=== PATIENT | female | born 1950 | race Caucasian/White ===

== ENCOUNTER 2017-04-07 12:13 | Emergency (ER) | payer MEDICARE, BC ==
[2017-04-07 12:21] VITALS: BP 157/94
[2017-04-07] MEDS ORDERED: Ketorolac INJ* 60 MG/2 ML VIAL IM ONE (13:18)
[2017-04-07] MEDS ORDERED: Ondansetron ODT TAB* 4 MG PO ONE (13:18)
--- NOTE | 2017-04-07 14:14 | UC ---
General HPI - HPI Summary HPI Summary: 1) FOR FIVE DAYS HAS HAD DENTAL PAIN AND FACIAL PRESSURE WITH HEADACHES. HAS ' BAD TEETH' AND HAS NOT SEEN DENTIST IN MANY YEARS. NO FEVERS. NO FACIAL SWELLING. 2) TWISTED GETTING OUT OF BED TWO DAYS AGO, LOW BACK PAIN THAT RADIATES DOWN R> L LEGS - History of Current Complaint Chief Complaint: UCHeadache Stated Complaint: HEADACHE Time Seen by Provider: 04/07/17 13:04 Hx Obtained From: Patient Onset/Duration: Gradual Onset, Lasting Days, Still Present Timing: Intermittent Episodes Lasting: Onset Severity: Mild Current Severity: Moderate Pain Intensity: 0 Associated Signs & Symptoms: Positive: Back Pain, Headache, Nausea, Trauma. Negative: Abdominal Pain, Confusion, Cough, Chest Pain, Dizziness, Diarrhea, Dysuria, Edema, Fever, Palpitations, Syncope, SOB, Vomiting, Wheezing, Weakness - Allergy/Home Medications Allergies/Adverse Reactions: Allergies Allergy/AdvReac Type Severity Reaction Status Date / Time Amoxicillin [From Augmentin] AdvReac Abdominal Verified 01/24/14 20:12 Pain Clavulanic Acid AdvReac Abdominal Verified 01/24/14 20:12 [From Augmentin] Pain PMH/Surg Hx/FS Hx/Imm Hx Previously Healthy: Yes - Surgical History Surgical History: Yes Surgery Procedure, Year, and Place: tubal ligation, tonsilectomy - Family History Known Family History: Negative: Renal Disease - Social History Occupation: Employed Full-time Lives: With Family Alcohol Use: None Substance Use Type: None Smoking Status (MU): Never Smoked Tobacco Review of Systems Constitutional: Negative Skin: Negative Eyes: Negative ENT: Dental Pain, Sinus Congestion, Sinus Pain/Tenderness Respiratory: Negative Cardiovascular: Negative Gastrointestinal: Negative Genitourinary: Negative Motor: Negative Neurovascular: Negative Musculoskeletal: Arthralgia, Myalgia Neurological: Negative Psychological: Negative All Other Systems Reviewed And Are Negative: Yes Physical Exam Triage Information Reviewed: Yes Appearance: Well-Appearing, Well-Nourished, Pain Distress - MILD, Obese Vital Signs: Initial Vital Signs Temp 98 F 04/07/17 12:16 Pulse 106 04/07/17 12:16 Resp 20 04/07/17 12:16 BP 157/94 04/07/17 12:16 Pulse Ox 100 04/07/17 12:16 Vital Signs Reviewed: Yes Eye Exam: Normal Eyes: Positive: Conjunctiva Clear ENT: Positive: Normal ENT inspection, TMs normal, Other: - LEFT MAXOFACIAL TENDERNESS Dental: Positive: Gross Decay/Caries @ - DIFFUSE GROSS DECAY Neck exam: Normal Neck: Positive: Supple, Nontender, No Lymphadenopathy Respiratory Exam: Normal Respiratory: Positive: Chest non-tender, Lungs clear, Normal breath sounds, No respiratory distress Cardiovascular Exam: Normal Cardiovascular: Positive: RRR, No Murmur, Pulses Normal, Brisk Capillary Refill Abdominal Exam: Normal Abdomen Description: Positive: Nontender, No Organomegaly. Negative: CVA Tenderness (R), CVA Tenderness (L) Musculoskeletal: Positive: Strength Intact, ROM Intact, No Edema, Other: - POSITIVE LEFT STRAIGHT LEG RAISE Neurological Exam: Normal Psychological Exam: Normal Skin Exam: Normal Course/Dx - Differential Dx - Multi-Symptom Differential Diagnoses: Other Provider Diagnoses: GROSS TOOTH DECAY; SINUSITIS; SCIATICA Discharge - Discharge Plan Condition: Stable Disposition: HOME Prescriptions: Cephalexin CAP* [Keflex CAP*] 500 mg PO QID #40 cap Metaxalone TAB* [Skelaxin TAB*] 800 mg PO TID PRN #12 tab PRN Reason: Spasms Patient Education Materials: Sinusitis (ED), Sciatica (ED), Toothache (ED) Referrals: Clint Sommers MD [Primary Care Provider] - Additional Instructions: PHYSICAL THERAPY REFERRAL: You have been prescribed physical therapy. Treatments may include stretching, exercise, application of heat or cold, and other modalities. After an injury, PT can reduce swelling and pain. In recovery, PT is used to restore mobility and strength. Your specific treatment goals are: Reduction of Swelling (EGS, US, ice as needed) ___x__ Pain Reduction (EGS, US, ice as needed) ___x__ TENS Pack Fitting and Instruction Wound Hydrotherapy __x___ Preservation of Mobility __x___ Restorationism of Mobility __x___ Strength Restorationism ___x__ Work or Sports Hardening This instruction sheet also serves as your PHYSICAL THERAPY REFERRAL! Please take it with you to the therapist, so he/she will be aware of your diagnosis and treatment plan. You may see the physical therapist of your choice for these treatments, but may wish to check with your insurance to be sure the provider you select is covered. It's important to see the doctor to whom you have been referred for follow up.
== END 2017-04-07 13:40 | disposition home or self-care (01) ==
LOC: UCEAST 12:13
DX: K02.9 Dental caries, unspecified (principal); J32.9 Chronic sinusitis, unspecified; M54.30 Sciatica, unspecified side
CPT/HCPCS: 96372; 99212; A9270-GY; G0463; J1885

== ENCOUNTER 2017-06-29 14:51 | Emergency (ER) | payer MEDICARE, OTHER ==
--- NOTE | 2017-06-29 16:14 | RAD ---
HISTORY: Tender Lisfranc joint, base of fifth metatarsal after fall, tender medial and lateral malleoli and talar dome COMPARISONS: None VIEWS: 6, Frontal, lateral, and oblique views of the left foot and of the left ankle FINDINGS: BONE DENSITY: Normal. BONES: There is no displaced fracture. There are calcaneal enthesophytes. 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 The Lisfranc interval is normal. ALIGNMENT: There is no dislocation. SOFT TISSUES: Unremarkable. OTHER FINDINGS: None. IMPRESSION: NO ACUTE OSSEOUS INJURY TO THE LEFT ANKLE OR LEFT FOOT. IF SYMPTOMS PERSIST, RECOMMEND REPEAT IMAGING.
[2017-06-29 16:56] VITALS: BP 184/100
[2017-06-29] MEDS ORDERED: Aspirin Low Dose CHEW TAB* 81 MG PO ONE (17:22)
--- NOTE | 2017-07-08 17:09 | UC ---
Abraham Giraldo Nikita, scribed for Estefanía Peterson DO on 06/29/17 at 1606 . Lower Extremity/Ankle HPI - HPI Summary HPI Summary: This patient is a 67 year old F presenting to [facility] with a chief complaint of L foot pain since . Pt was at [facility] when she fell after putting her R foot down on the floor. Pt doesnt know what made her fall. The CC is described as aching, throbbing, and tender, pain in L side of foot, under the foot, and around the both sides of ankle (worse on L side). The patient rates the pain 7/10 in severity. Symptoms aggravated by walking and pulling toes up. Symptoms alleviated by nothing. Patient reports mild swelling on L side of foot. Patient denies pain in L leg. - History of Current Complaint Chief Complaint: UCLowerExtremity Stated Complaint: FOOT ANKLE INJURY Time Seen by Provider: 06/29/17 15:33 Hx Obtained From: Patient Onset/Duration: Sudden Onset, Lasting Hours, Still Present Severity Initially: Moderate Severity Currently: Moderate Pain Intensity: 7 Pain Scale Used: 0-10 Numeric Aggravating Factor(s): Ambulation, Other - pulling toes up Alleviating Factor(s): Nothing - Allergies/Home Medications Allergies/Adverse Reactions: Allergies Allergy/AdvReac Type Severity Reaction Status Date / Time Amoxicillin [From Augmentin] AdvReac Abdominal Verified 06/29/17 15:22 Pain Clavulanic Acid AdvReac Abdominal Verified 06/29/17 15:22 [From Augmentin] Pain Home Medications: Home Medications Lisinopril TAB* [Prinivil TAB 5 MG*] 5 mg PO DAILY 06/29/17 [History Confirmed 06/29/17] PMH/Surg Hx/FS Hx/Imm Hx Endocrine History: Thyroid Disease Other Endocrine History: No DM Cardiovascular History: Hypertension - Surgical History Surgical History: Yes Surgery Procedure, Year, and Place: tubal ligation, tonsilectomy - Family History Known Family History: Negative: Renal Disease - Social History Alcohol Use: Rare Substance Use Type: None Smoking Status (MU): Never Smoked Tobacco Review of Systems Constitutional: Negative Musculoskeletal: Other: - L foot/ankle pain, mild swelling on L foot; denies pain in L leg All Other Systems Reviewed And Are Negative: Yes Physical Exam Triage Information Reviewed: Yes Appearance: Well-Appearing, No Pain Distress, Well-Nourished Vital Signs: Initial Vital Signs Temp 96.9 F 06/29/17 15:13 Pulse 64 06/29/17 15:13 Resp 20 06/29/17 15:13 BP 174/76 06/29/17 15:13 Pulse Ox 98 06/29/17 15:13 Vital Signs Reviewed: Yes Eyes: Positive: Conjunctiva Clear. Negative: Discharge ENT: Positive: Hearing grossly normal, Other: - Normal voice. Negative: Muffled /hoarse voice Neck exam: Normal Neck: Positive: Supple Respiratory: Positive: Lungs clear, Normal breath sounds, No respiratory distress, No accessory muscle use Cardiovascular: Positive: RRR, No Murmur Musculoskeletal: Positive: Other: - tender over medial and lateral malleolus, talar dome, base of 5th metatarsal, and lisfranc joint of L foot Neurological Exam: Other - A&Ox3, CN II-XII INTACT, SENSORY MOTOR INTACT, REFLEXES INTACT, NO CEREBELLAR SIGNS, FACIAL SYMMETRY, NEGATIVE ROMBERG, NORMAL GAIT Neurological: Positive: Alert, Muscle Tone Normal Psychological Exam: Normal Psychological: Positive: Age Appropriate Behavior Skin Exam: Normal, Other - Warm, Dry, Normal color Diagnostics - Radiology L Foot XR Radiology Interpretation Completed By: Radiologist - NO ACUTE OSSEOUS INJURY TO THE LEFT ANKLE OR LEFT FOOT. IF SYMPTOMS PERSIST, RECOMMEND REPEAT IMAGING. Ankle XR Radiology Interpretation Completed By: Radiologist - NO ACUTE OSSEOUS INJURY TO THE LEFT ANKLE OR LEFT FOOT. IF SYMPTOMS PERSIST, RECOMMEND REPEAT IMAGING. ED physician has reviewed this radiology report and agrees. - EKG Cardiac Rate: Bradycardia - 51 bpm; taken at 1659; RSR' in V1 & V2, new since 11/03 Re-Evaluation - Re-Evaluation First Eval Re-Evaluation Time: 16:59 Comment: Rechecked BP with manual cuff because it was elevated and found that it was still elevated. Upon questioning, pt admits she did not take her BP medication this morning. An EKG will be taken. Lower Extremity Course/Dx - Course Course Of Treatment: This patient is a 67 year old F presenting to [facility] with a chief complaint of L foot pain since . Pt was at [facility] when she fell after putting her R foot down on the floor. Pt doesnt know what made her fall. The CC is described as aching, throbbing, and tender, pain in L side of foot, under the foot, and around the both sides of ankle (worse on L side). The patient rates the pain 7/10 in severity. Symptoms aggravated by walking and pulling toes up. Symptoms alleviated by nothing. Patient reports mild swelling on L side of foot. Patient denies pain in L leg. L foot XR reveals NO ACUTE OSSEOUS INJURY TO THE LEFT ANKLE OR LEFT FOOT. IF SYMPTOMS PERSIST, RECOMMEND REPEAT IMAGING. L ankle XR reveals NO ACUTE OSSEOUS INJURY TO THE LEFT ANKLE OR LEFT FOOT. IF SYMPTOMS PERSIST, RECOMMEND REPEAT IMAGING. ED physician has reviewed this radiology report and agrees. EKG reveals sinus bradycardia at 51 bpm and RSR' in V1 & V2 (new since 10/11/05). Medications reviewed this visit. High blood pressure noted. Pt will be discharged and sent to [facility]. Pt is agreeable with this plan. - Differential Dx/Diagnosis Provider Diagnoses: Ankle sprain. Suspected fracture. Elevated blood pressure without diagnosis of hypertension. Discharge - Discharge Plan Condition: Stable Disposition: HOME Patient Education Materials: Ankle Sprain (ED), Crutch Instructions (ED), Chronic Hypertension (ED), Suspected Fracture (ED) Referrals: Bright Crowder MD [Medical Doctor] - (Follow up with Dr. Crowder in 5-7 days to re-evaluate for fracture.) Clint Sommers MD [Primary Care Provider] - If Needed Additional Instructions: Your history and exam is suspicous for possible occult fracture of the base of the 5th metatarsal. This is a fracture that can have a bad outcome if not properly immobilized. So, we will treat this as a fracture until proven otherwise. That means that you must wear the WALKING BOOT 24 hours a day until the ortho provider tells you otherwise. You should also remain NON-WEIGHT BEARING until told otherwise by the orthopedist, so walking and standing should be done with the help of crutches. It will take 5-7 days to establish whether or not your bone is fractured. BECAUSE YOUR BLOOD PRESSURE WAS VERY ELEVATED AT THE TIME OF THIS VISIT, WE HAD DO AN EKG. WE DID NOTE CHANGES ON YOUR EKG. FOR THIS REASON, WE ARE SENDING YOU TO THE ED FOR FURTHER EVALUATION. The documentation as recorded by the Abraham cruz Nikita accurately reflects the service I personally performed and the decisions made by me, Estefanía Peterson DO.
== END 2017-06-29 17:59 | disposition short-term general hospital (02) ==
LOC: UCEAST 14:51
DX: S93.402A Sprain of unspecified ligament of left ankle, initial encounter (principal); W18.30XA Fall on same level, unspecified, initial encounter; Y93.89 Activity, other specified; Y92.512 Supermarket, store or market as the place of occurrence of the external cause; E07.9 Disorder of thyroid, unspecified; I10 Essential (primary) hypertension; R00.1 Bradycardia, unspecified; Z88.1 Allergy status to other antibiotic agents
CPT/HCPCS: 93005; 99213; A9270-GY; G0463

== ENCOUNTER 2017-06-29 18:24 | Emergency (ER) | payer MEDICARE, OTHER ==
[2017-06-29 19:55] LABS: Hematocrit 41 % (35-47); Mean Corpuscular HGB Conc 35 g/dl (31-36); Mean Corpuscular Hemoglobin 30 pg (27-31); Mean Corpuscular Volume 87 fL (80-97); Mean Platelet Volume 8 um3 (7.4-10.4); Red Blood Count 4.66 10^6/ul (4.0-5.4); Red Cell Distribution Width 13 % (10.5-15); White Blood Count 8.3 10^3/ul (3.5-10.8)
[2017-06-29] MEDS ORDERED: Acetaminophen TAB* 325 MG PO ONE (20:08)
[2017-06-29 20:10] LABS: Albumin 4.5 g/dL (3.2-5.2); BUN/Creatinine Ratio 16.9 (8-20); Calcium 9.4 mg/dL (8.6-10.3); EGFR African American 81.6 (>60); EGFR Non-African American 63.5 (>60); Globulin 3.4 g/dL (2-4); Magnesium 2.1 mg/dL (1.9-2.7); Potassium 3.7 mmol/L (3.5-5.0); Total Bilirubin 0.4 mg/dL (0.2-1.0); Total Protein 7.9 g/dL (6.4-8.9)
[2017-06-29 20:14] LABS: Troponin I 0.03 ng/mL (<0.04)
[2017-06-29] MEDS ORDERED: Potassium Chlor TAB* 20 MEQ TAB.ER PO ONE (20:20)
[2017-06-29 20:45] LABS: TSH (Thyroid Stimulating Horm) 5.84 mcIU/mL (0.34-5.60)
[2017-06-29 21:38] VITALS: BP 149/91
--- NOTE | 2017-06-29 22:40 | ED ---
Yeny Giraldo Alfonso, scribed for Jamaal Tellez MD on 06/29/17 at 1858 . Complex/Multi-Sys Presentation - History Of Current Complaint Chief Complaint: EDDysrhythmPalp Time Seen by Provider: 06/29/17 18:43 Hx Obtained From: Patient, Other: - ICCC Onset/Duration: Sudden Onset, Lasting Hours, Resolved - ICCC treatment Timing: Constant Aggravating Factor(s): nothing Alleviating Factor(s): ICCC treatment Associated Signs And Symptoms: Positive: Other - Patient reports intermittent palpations. ICCC reports HTN and occasional PVCs. Patient denies CP, and SOB. - Allergies/Home Medications Allergies/Adverse Reactions: Allergies Allergy/AdvReac Type Severity Reaction Status Date / Time Amoxicillin [From Augmentin] AdvReac Abdominal Verified 06/29/17 15:22 Pain Clavulanic Acid AdvReac Abdominal Verified 06/29/17 15:22 [From Augmentin] Pain PMH/Surg Hx/FS Hx/Imm Hx Endocrine/Hematology History: Reports: Hx Thyroid Disease Denies: Hx Diabetes Cardiovascular History: Reports: Hx Hypertension Respiratory History: Reports: Hx Asthma Denies: Hx Chronic Obstructive Pulmonary Disease (COPD) GI History: Denies: Hx Ulcer - Surgical History Surgery Procedure, Year, and Place: tubal ligation, tonsilectomy Infectious Disease History: No Infectious Disease History: Denies: Hx Clostridium Difficile, Hx Hepatitis, Hx Human Immunodeficiency Virus (HIV), Hx of Known/Suspected MRSA, Hx Shingles, Hx Tuberculosis, Hx Known/ Suspected VRE, Hx Known/Suspected VRSA, History Other Infectious Disease, Traveled Outside the [place] in Last 30 Days - Family History Known Family History: Negative: Renal Disease - Social History Alcohol Use: Rare Alcohol Amount: socially Substance Use Type: Reports: None Smoking Status (MU): Never Smoked Tobacco Review of Systems Positive: Palpitations, Other - HTN and occasional PVCs. Negative: Chest Pain Negative: Shortness Of Breath Positive: Other - left ankle pain All Other Systems Reviewed And Are Negative: Yes Physical Exam Triage Information Reviewed: Yes Vital Signs On Initial Exam: Initial Vitals Temp Pulse Resp BP Pulse Ox 98.1 F 59 17 201/83 98 06/29/17 18:29 06/29/17 18:29 06/29/17 18:29 06/29/17 18:29 06/29/17 18:29 Vital Signs Reviewed: Yes Appearance: Positive: Well-Appearing, No Pain Distress, Obese Skin: Positive: Warm, Skin Color Reflects Adequate Perfusion, Dry Head/Face: Positive: Normal Head/Face Inspection Eyes: Positive: Normal ENT: Positive: Normal ENT inspection Neck: Positive: Supple, Nontender Respiratory/Lung Sounds: Positive: Clear to Auscultation, Breath Sounds Present Cardiovascular: Positive: RRR Abdomen Description: Positive: Nontender, Soft Bowel Sounds: Positive: Present Musculoskeletal: Positive: Other - Left leg in splint. Left ankle not examed. Neurological: Positive: Normal, Sensory/Motor Intact, Alert, Oriented to Person Place, Time, CN Intact II-III Psychiatric: Positive: Normal, Affect/Mood Appropriate - [place] Coma Scale Coma Scale Total: 15 Diagnostics - Vital Signs Vital Signs Temp Pulse Resp BP Pulse Ox 06/29/17 18:29 98.1 F 59 17 201/83 98 - Laboratory Lab Results: Lab Results 06/29/17 06/29/17 06/29/17 Range/Units 19:40 19:40 19:40 WBC 8.3 (3.5-10.8) 10^3/ul RBC 4.66 (4.0-5.4) 10^6/ul Hgb 14.0 (12.0-16.0) g/dl Hct 41 (35-47) % MCV 87 (80-97) fL MCH 30 (27-31) pg MCHC 35 (31-36) g/dl RDW 13 (10.5-15) % Plt Count 197 (150-450) 10^3/ul MPV 8 (7.4-10.4) um3 Neut % (Auto) 69.6 (38-83) % Lymph % (Auto) 21.3 L (25-47) % [place] % (Auto) 5.9 (1-9) % Eos % (Auto) 1.9 (0-6) % Baso % (Auto) 1.3 (0-2) % Absolute Neuts (auto) 5.8 (1.5-7.7) 10^3/ul Absolute Lymphs (auto) 1.8 (1.0-4.8) 10^3/ul Absolute Monos (auto) 0.5 (0-0.8) 10^3/ul Absolute Eos (auto) 0.2 (0-0.6) 10^3/ul Absolute Basos (auto) 0.1 (0-0.2) 10^3/ul Absolute Nucleated RBC 0 10^3/ul Nucleated RBC % 0 Sodium 137 (133-145) mmol/L Potassium 3.7 (3.5-5.0) mmol/L Chloride 101 (101-111) mmol/L Carbon Dioxide 28 (22-32) mmol/L Anion Gap 8 (2-11) mmol/L BUN 15 (6-24) mg/dL Creatinine 0.89 (0.51-0.95) mg/dL Est GFR ( Amer) 81.6 (>60) Est GFR (Non-Af Amer) 63.5 (>60) BUN/Creatinine Ratio 16.9 (8-20) Glucose 81 (70-100) mg/dL Lactic Acid 1.0 (0.5-2.0) mmol/L Calcium 9.4 (8.6-10.3) mg/dL Magnesium 2.1 (1.9-2.7) mg/dL Total Bilirubin 0.40 (0.2-1.0) mg/dL AST 21 (13-39) U/L ALT 27 (7-52) U/L Alkaline Phosphatase 116 H (34-104) U/L Troponin I 0.03 (<0.04) ng/mL Total Protein 7.9 (6.4-8.9) g/dL Albumin 4.5 (3.2-5.2) g/dL Globulin 3.4 (2-4) g/dL Albumin/Globulin Ratio 1.3 (1-3) TSH 5.84 H (0.34-5.60) mcIU/mL Result Diagrams: 06/29/17 19:40 06/29/17 19:40 Lab Statement: Any lab studies that have been ordered have been reviewed, and results considered in the medical decision making process. - EKG 1947 Cardiac Rate: Bradycardia - BPM 56 EKG Rhythm: Sinus Bradycardia EKG Interpretation: Non specific T wave changes EKG Comparison: No Significant Change - Earlier today Complex Multi-Symp Course/Dx Course Of Treatment: Ms. Serna was sent over from [facility]. She sprained her ankle and was noted to be mildly hypertensive. She was feeling some intermittent 'fluttering' in her chest and an ecg was performed, she was placed on a monitor and VPC were seen. Her potassium was low normal here and that was replaced. She actually didn't have any VPCs here and her BP wasn't bad. - Diagnoses Provider Diagnoses: PVCs (premature ventricular contractions) Discharge - Discharge Plan Condition: Stable Disposition: HOME Patient Education Materials: Premature Ventricular Contractions (ED) Referrals: Clint Sommers MD [Primary Care Provider] - 3 Days Additional Instructions: RETURN TO THE EMERGENCY DEPARTMENT FOR CHANGING OR WORSENING SYMPTOMS. The documentation as recorded by the Yeny cruz Alfonso accurately reflects the service I personally performed and the decisions made by me, Jamaal Tellez MD.
== END 2017-06-29 21:34 | disposition home or self-care (01) ==
LOC: ED 18:24
DX: I49.3 Ventricular premature depolarization (principal); J45.909 Unspecified asthma, uncomplicated; I10 Essential (primary) hypertension; R94.31 Abnormal electrocardiogram [ECG] [EKG]; Z88.0 Allergy status to penicillin; Z88.8 Allergy status to other drugs, medicaments and biological substances
CPT/HCPCS: 36415; 80053; 83605; 83735; 84443; 84484; 85025; 93005; 99283; A9270-GY

== ENCOUNTER 2018-05-22 09:40 | Emergency (ER) | payer MEDICARE, OTHER ==
[2018-05-22 09:48] VITALS: BP 136/71
[2018-05-22] MEDS ORDERED: Ibuprofen TAB* 600 MG PO ONE (10:31)
--- NOTE | 2018-05-22 10:34 | UC ---
Head Injury HPI - HPI Summary HPI Summary: This patient is a 68 year old F presenting to [facility] [place] with a CC of head injury since 05/18/18. She endorses coming upright quickly and hitting the top of her head on metal stairs. She denies LOC, associated fall, nausea, blood from eyes, nose, ears, or mouth, visual changes, numbness, tingling, or weakness in her extremities. Pt is in UC now because the pain is worse than before. Pt states pain is muscle spasm and tightness on either side of neck L>R pain worse when turns head Denies paresthesia or weakness of arms. Pt states she took Tylenol between 929 and 944 will little improvement No other analgesia today. No blood thinners. Pt sees physical therapy for her right elbow. Pt states she has an appointment today and would a referral for therapist to "help the muscles in my neck" Pt's medications reviewed this visit - History Of Current Complaint Chief Complaint: UCHeadInjury Stated Complaint: HEAD INJURY Time Seen by Provider: 05/22/18 10:15 Hx Obtained From: Patient Onset/Duration: Sudden Onset, Lasting Days, Still Present, Worse Since - today Severity Currently: Moderate Severity Initially: Moderate Pain Intensity: 8 Pain Scale Used: 0-10 Numeric Aggravating Factor(s): Other - moving head Alleviating Factor(s): Nothing Associated Signs And Symptoms: Positive: Neck Pain, Other - radiation to shoulders, upper back, left eye, down right side of head.. Negative: LOC (Time In Secs./Mins/Hrs), LOC Duration Unknown, Epistaxis, Nausea - Allergies/Home Medications Allergies/Adverse Reactions: Allergies Allergy/AdvReac Type Severity Reaction Status Date / Time amoxicillin [From Augmentin] Allergy nvd Verified 05/22/18 09:48 clavulanic acid Allergy nvd Verified 05/22/18 09:48 [From Augmentin] Home Medications: Home Medications Loratadine 10 mg PO DAILY 05/22/18 [History Confirmed 05/22/18] PMH/Surg Hx/FS Hx/Imm Hx Previously Healthy: Yes Endocrine History: Hypothyroidism Cardiovascular History: Hypertension Psychological History: Depression - Surgical History Surgical History: Yes Surgery Procedure, Year, and Place: tubal ligation, tonsilectomy - Family History Known Family History: Positive: Other - non contributory Negative: Renal Disease - Social History Occupation: Employed Full-time Lives: With Family Alcohol Use: Rare Alcohol Amount: socially Substance Use Type: None Smoking Status (MU): Never Smoked Tobacco Review of Systems Musculoskeletal: Myalgia - neck, shoulders, upper back Neurological: Headache - top of head, left eye. Is Patient Immunocompromised?: No All Other Systems Reviewed And Are Negative: Yes Physical Exam - Summary Physical Exam Summary: Vital Signs Reviewed: Yes A+Ox3, no distress Eyes: Conjunctiva Clear, CHELA. EOM intact and full ENT: Hearing grossly normal TM x 2 clear, mmoist, uvula midline, no exudate, no erythema Neck: Positive: Supple Respiratory: Positive: No respiratory distress, No accessory muscle use + CTA throughout no w/r Cardiovascular: RRR nl s1, s2 no m/r CBT <2 sec abd soft + BS nt/nd no guarding, no distension Musculoskeletal Exam: No spinous process pain c/t/l/s + TTP paraspinal muscles L>R cervical area Left sided neck discomfort with flexion, extension of neck and left lateral rotation. + abduct shoulder + flex/ext elbows, wrist without difficulty Neurological: Positive: Alert, + sensation throughout+ thumb up, a ok, finger spread, finger cross without difficulty Psychological: Positive: Normal Response To Family Skin: Positive: no rash, no ecchymosis no hematoma scalp Triage Information Reviewed: Yes Vital Signs: Initial Vital Signs Temp 98 F 05/22/18 09:45 Pulse 73 05/22/18 09:45 Resp 20 05/22/18 09:45 BP 136/71 05/22/18 09:45 Pulse Ox 98 05/22/18 09:45 Diagnostics - Radiology XR C-spine Xray Interpretation: No Acute Changes Radiology Interpretation Completed By: Radiologist - #. Mild interval worsening of multilevel degenerative spondylosis and facet joint osteoarthritis. #. Negative for fracture or facet subluxation. Dr. Damico has reviewed this report. Re-Evaluation - Re-Evaluation First Eval Re-Evaluation Time: 11:08 Change: Unchanged Comment: Reviewed XR, will refer to PT, pt will try a cervical support collar. Motrin/apap for pain. Heat and stretching. Strict return precautions. Patient given a work note. Patient comfortable in agreement with plan. Head Injury Course/Dx - Course Course Of Treatment: Patient presents with progressive muscle spasm bilateral C- spine. Patient struck the top of her head on Sunday when she stood up and a metal bar. Patient denies any paresthesias down her extremities no weakness. Patient denies loss of consciousness. Patient took one Tylenol this morning with no improvement. Patient states muscles feels this stiff and spasm-like. Pain is worse with rotation area on exam vital signs are stable. Patient with paraspinal discomfort left more than right. We'll check a plain film imaging. We'll give patient ibuprofen here we'll refer patient to physical therapy. Patient comfortable in agreement with plan - Differential Dx/Diagnosis Provider Diagnoses: cervical strain. muscle spasm. scalp contusion Discharge - Sign-Out/Discharge Documenting (check all that apply): Patient Departure - discharge All imaging exams completed and their final reports reviewed: Yes - Discharge Plan Condition: Stable Disposition: HOME Patient Education Materials: Cervical Strain (ED), Muscle Spasm (ED) Forms: *Work Release Referrals: Clint Sommers MD [Primary Care Provider] - Additional Instructions: - Okay to alternate Tylenol (acetaminophen) and ibuprofen (Motrin, Advil) every 3 hours as needed for pain. Take with food. Do not take for more than 4-5 day -Apply moist heat to your back for 20 minutes at a time, 4-5 times a day. Once your muscles are warm, slow gentle stretching exercises are important - After you have stretched your back - apply ice for 15 minutes. Do not put ice directly on your skin. - schedule a follow-up with physical therapy. It is also recommended you follow- up with your primary care provider. If you develop are weakness or tingling, contact your doctor or go to the emergency department - Billing Disposition and Condition Condition: STABLE Disposition: Home - Attestation Statements Document Initiated by Maryibsimi: Yes Documenting Scribe: Chris Reza Provider For Whom Blanca is Documenting (Include Credential): Dr. Gretchen Damico MD Scribe Attestation: Kristal, mary Whittenibed for Dr. Gretchen Damico MD on 05/22/18 at 1121. Scribe Documentation Reviewed: Yes Provider Attestation: The documentation as recorded by the Chris cruz accurately reflects the service I personally performed and the decisions made by me, Dr. Gretchen Damico MD
--- NOTE | 2018-05-22 11:05 | RAD ---
Indication: Mid cervical LEFT paraspinal pain following striking top of head on Sunday. Comparison: August 01, 2000 Technique: AP, open-mouth odontoid, lateral, and oblique views cervical spine. Report: Normal alignment from the craniocervical junction through the cervicothoracic junction. Negative for fracture. Moderately severe C5-C6 and C6-C7 disc space narrowing with mild associated vertebral endplate osteophytosis and reactive endplate sclerosis with only mild interval worsening. Interval worsening of multilevel facet joint osteoarthritis. Uncinate process spurring results in significant osseous foraminal stenosis at C5-C6 on the RIGHT and less marked at C6-C7 on the RIGHT. Unremarkable prevertebral and paravertebral soft tissue contours. IMPRESSION: #. Mild interval worsening of multilevel degenerative spondylosis and facet joint osteoarthritis. #. Negative for fracture or facet subluxation.
== END 2018-05-22 11:19 | disposition home or self-care (01) ==
LOC: UCEAST 09:40
DX: S16.1XXA Strain of muscle, fascia and tendon at neck level, initial encounter (principal); S00.03XA Contusion of scalp, initial encounter; W22.09XA Striking against other stationary object, initial encounter; Y93.9 Activity, unspecified; Y92.9 Unspecified place or not applicable; M62.838 Other muscle spasm; Z88.1 Allergy status to other antibiotic agents; Z88.0 Allergy status to penicillin
CPT/HCPCS: 72050; 99212; A9270-GY; G0463

== ENCOUNTER 2018-09-28 11:54 | Emergency (ER) | payer MEDICARE, OTHER ==
[2018-09-28 12:08] VITALS: BP 146/85
--- NOTE | 2018-09-28 12:49 | UC ---
Neck Pain HPI - HPI Summary HPI Summary: Developed neck/upper back pain 2-3 days ago. Saw PCP yesterday, thinks her pain is from carrying a heavy load of laundry/groceries up the stairs prior to pain. Tried taking cyclobenzaprine last night and 200mg of ibuprofen without relief. Will be seeing physical therapist for this in 2 days. - History of Current Complaint Chief Complaint: UCBackPain Stated Complaint: BACK INJURY Time Seen by Provider: 09/28/18 12:12 Hx Obtained From: Patient ?: No Mechanism Of Injury: No Known Trauma Onset/Duration: Gradual Onset, Lasting Days Severity: Moderate Pain Intensity: 10 Character: Sharp, Aching, Stiff Aggravating Factors: Position Alleviating Factors: Nothing Associated Signs & Symptoms: Positive: Negative - Allergies/Home Medications Allergies/Adverse Reactions: Allergies Allergy/AdvReac Type Severity Reaction Status Date / Time amoxicillin [From Augmentin] Allergy nvd Verified 09/28/18 12:08 clavulanic acid Allergy nvd Verified 09/28/18 12:08 [From Augmentin] Home Medications: Home Medications Cyclobenzaprine TAB* [Flexeril 10 MG TAB*] 09/28/18 [History] PMH/Surg Hx/FS Hx/Imm Hx Endocrine History: Thyroid Disease Cardiovascular History: Hypertension Psychological History: Depression - Surgical History Surgical History: Yes Surgery Procedure, Year, and Place: tubal ligation, tonsilectomy - Family History Known Family History: Positive: Other - non contributory Negative: Renal Disease - Social History Lives: With Family Alcohol Use: Rare Alcohol Amount: socially Substance Use Type: None Smoking Status (MU): Never Smoked Tobacco Review Of Systems Constitutional: Positive: Negative Skin: Positive: Negative Eyes: Positive: Negative ENT: Positive: Negative Respiratory: Positive: Negative Cardiovascular: Positive: Negative Gastrointestinal: Positive: Negative Genitourinary: Positive: Negative Musculoskeletal: Positive: Arthralgia, Decreased ROM, Myalgia Neurological: Positive: Negative Psychological: Positive: Negative All Other Systems Reviewed And Are Negative: Yes Physical Exam Triage Information Reviewed: Yes Appearance: Well-Nourished, Pain Distress Vital Signs: Initial Vital Signs Temp 97.9 F 09/28/18 12:03 Pulse 72 09/28/18 12:03 Resp 18 09/28/18 12:03 BP 146/85 09/28/18 12:03 Pulse Ox 96 09/28/18 12:03 Vital Signs Reviewed: Yes Eye Exam: Normal Eyes: Positive: Conjunctiva Clear ENT Exam: Normal ENT: Positive: Normal ENT inspection, Hearing grossly normal, Pharynx normal, TMs normal Dental: Positive: Other: - mostly edentulous on top Neck exam: Other - limited in flexion, pain with ROM Respiratory Exam: Normal Respiratory: Positive: Chest non-tender, Lungs clear, Normal breath sounds, No respiratory distress, No accessory muscle use Cardiovascular Exam: Normal Cardiovascular: Positive: RRR, No Murmur Musculoskeletal: Positive: Strength Intact, ROM Intact - except for neck Neurological Exam: Normal Neurological: Positive: Alert, Muscle Tone Normal Psychological Exam: Normal Skin Exam: Normal Neck Pain Course/Dx - Differential Dx/Diagnosis Provider Diagnosis: Cervical strain, acute Discharge - Sign-Out/Discharge Documenting (check all that apply): Patient Departure All imaging exams completed and their final reports reviewed: No Studies - Discharge Plan Condition: Stable Disposition: HOME Prescriptions: Naproxen [Naproxen 375 mg tab] 375 mg PO TID #30 tablet Patient Education Materials: Cervical Strain (ED) Referrals: Savi Billings MD [Primary Care Provider] - Additional Instructions: Continue to use warm moist heat, gravity-led ROM exercises, and regular anti- inflammatories. Your pain will come down with time. Take your cyclobenzaprine at bedtime. - Billing Disposition and Condition Condition: STABLE Disposition: Home - Attestation Statements Provider Attestation: I was available for consult. This patient was seen by the ANKIT. The patient was not presented to, seen by, or examined by me. -[place]
--- OUTSIDE RECORDS SUMMARY | 2018-09-28 13:05 | XMS REPORT | Continuity of Care Document ---
:1950 External Reference #:[id number] Author Name Macie Merida Care Team Providers Name Role Phone Savi Billings MD Primary Care Physician Unavailable Payers Type Date Identification Numbers Payment Provider Subscriber Policy Number: [id number] Medicare Miladys Serna PayID: [id number] [address] [place] [address] Policy Number: [id number] [facility] Miladys Serna PayID: [id number] [address] [place] [address] Advance Directives Description No Information Available Problems Date Description Provider Status Onset: 08/14/2018 Essential hypertension Savi Billings MD Active Onset: 08/14/2018 Hypothyroidism Savi Billings MD Active Onset: 08/14/2018 Obesity Savi Billings MD Active Onset: 08/14/2018 Chronic kidney disease stage 3 Savi Billings MD Active Onset: 08/14/2018 Abnormal involuntary movement Savi Billings MD Active Onset: 08/14/2018 Recurrent major depression in Savi Billings MD Active remission Onset: 08/14/2018 Chronic rhinitis [place] Bravo M.D. Active Onset: 08/14/2018 Palpitations Hawa Toribio M.D. 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 Tobacco Use Start: Unknown End: Former Cigarette Smoker Unknown Tobacco Use Start: Unknown Never Smoked Cigars Tobacco Use Start: Unknown Never Smoked A Pipe Smokeless Tobacco Never Used Smokeless Tobacco ETOH Use Occasionally consumes alcohol Tobacco Use Start: Unknown End: Patient is a former smoker Unknown Smoking Status Reviewed: 09/27/18 Patient is a former smoker Exercise Type/Frequency Does not exercise Allergies, Adverse Reactions, Alerts Date Description Reaction Status Severity Comments 07/31/2018 Augmentin Active vomiting/diarrhea 02/02/2014 NKDA Inactive Medications Medication Date Status Form Strength Qnty SIG Indications Ordering Provider Cyclobenzaprine 09/27/ Active Tablets 10mg 7tabs 1 by M54.2 Savi HCL 2019 mouth at MD [place] night Fluticasone 04/01/ Active Suspension 50mcg/Act 1unit 2 sprays J31.0 [place] Propionate 2018 s in each Shelly miles M.D. once daily Celexa / Active 1 by Unknown 0000 mouth every day Lisinopril / Active Tablets 10mg 90tab 1 by [place], 0000 s mouth Clint every day Ibuprofen / Active Tablets 200mg as needed Unknown 0000 Citalopram / Active Tablets 40mg 1 by Unknown Hydrobromide 0000 mouth every day Levothyroxine / Active Tablets 125mcg 1 by Unknown Sodium 0000 mouth every day Imodium A-D / Active Capsules 2mg take 1 Unknown 0000 tablet by mouth every 4 hours as needed for loose stools Acetaminophen / Active Capsules 500mg take 2 Unknown 0000 tablets by mouth three times daily Metaxalone / Active Tablets 800mg take 1 Unknown 0000 tablet 3 times a day as needed Ondansetron / Active Tablets 4mg dissolve Unknown 0000 Dispers one tablet orally every 8 hours as needed for nausea. Sudafed / Active Tablets 30mg take 1 Unknown Congestion 0000 tab every 6 hours as needed Naprosyn // Hx Unknown 0000 - 2017 Tramadol HCL ER / Hx Unknown 0000 - 2017 Cyclobenzaprine / Hx Tablets 10mg take 1 Unknown HCL 0000 - tab by 09/27/ mouth 2-3 2019 times a day as needed Medications Administered in Office Medication Date Status Form Strength Qnty SIG Indications Ordering Provider Hyalagan Or Administered Injection Jessica Su For 014 Liptak, Intra-Articula RPA-C r Inject Per Dose Depomedrol Administered Injection Jessica 80MG 014 Liptak, RPA-C Depomedrol Administered Injection Dirk Adryan, 80MG 013 M.D. Immunizations CPT Code Status Date Vaccine Reaction Lot # [id number] Given 07/31/2018 Influenza Virus Vaccine, No immediate reaction [id number] Quadrivalent, Split, noted. Preservative Free Vital Signs Date Vital Result Comment 09/27/2018 11:02am Weight 245.00 lb 09/27/2018 11:00am Heart Rate 80 /min BP Systolic 138 mmHg BP Diastolic 85 mmHg Body Temperature 97.9 F O2 % BldC Oximetry 96 % 08/14/2018 9:06am Height 65.5 inches 5'5.50" Weight 243.00 lb Heart Rate 74 /min BP Systolic Sitting 128 mmHg BP Diastolic Sitting 80 mmHg O2 % BldC Oximetry 96 % BMI (Body Mass Index) 39.8 kg/m2 07/31/2018 9:01am Height 65.5 inches 5'5.50" Weight 239.00 lb Heart Rate 79 /min BP Systolic Sitting 154 mmHg BP Diastolic Sitting 90 mmHg Body Temperature 97.4 F O2 % BldC Oximetry 96 % BMI (Body Mass Index) 39.2 kg/m2 04/01/2018 2:06pm Height 66 inches 5'6" Weight 240.00 lb BP Systolic Sitting 116 mmHg BP Diastolic Sitting 68 mmHg Respiratory Rate 16 /min Pain Level 0 BMI (Body Mass Index) 38.7 kg/m2 02/02/2014 8:36am Height 66 inches 5'6" Weight 232.00 lb Heart Rate 60 /min BP Systolic 180 mmHg BP Diastolic 100 mmHg BMI (Body Mass Index) 37.4 kg/m2 Results Test Date Facility Test Result H/L Range Note Comp Metabolic Panel 08/14/2018 [facility] Sodium 138 mmol/L N 135-[address] [place] [address] [phone] Potassium 4.4 mmol/L N 3.5-5.0 Chloride 105 mmol/L N 101-111 Co2 Carbon Dioxide 29 mmol/L N 22-32 Anion Gap 4 mmol/L N 2-11 Glucose 78 mg/dL N 70-100 Blood Urea Nitrogen 17 mg/dL N 6-24 Creatinine 0.93 mg/dL N 0.51-0.95 BUN/Creatinine Ratio 18.3 N 8-20 Calcium 9.2 mg/dL N 8.6-10.3 Total Protein 6.4 g/dL N 6.4-8.9 Albumin 4.1 g/dL N 3.2-5.2 Globulin 2.3 g/dL N 2-4 Albumin/Globulin Ratio 1.8 N 1-3 Total Bilirubin 0.40 mg/dL N 0.2-1.0 Alkaline Phosphatase 112 U/L High 34-104 Alt 25 U/L N 7-52 Ast 21 U/L N 13-39 Egfr Non- 60.1 >60 Egfr 72.8 >60 1 1 Because ethnic data is not always readily available, this report includes an eGFR for both -Americans and non- Americans. The National Kidney Disease Education Program (NKDEP) does not endorse the use of the MDRD equation for patients that are not between the ages of 18 and 70, are , have extremes of body size, muscle mass, or nutritional status, or are non- or non-. According to the National Kidney Foundation, irrespective of diagnosis, the stage of the disease is based on the level of kidney function: Stage Description GFR(mL/min/1.73 m(2)) 1 Kidney damage with normal or decreased GFR 90 2 Kidney damage with mild decrease in GFR 60-89 3 Moderate decrease in GFR 30-59 4 Severe decrease in GFR 15-29 5 Kidney failure <15 (or dialysis) Procedures Date Code Description Status 02/19/2014 01629 ECHO Transthoracic, Real-Time 2D With Doppler And Color Completed Flow 02/02/2014 Inject/Drain Joint/Bursa Major W/O US Completed 07/09/2013 50930 Xray Knee 3 Views Completed 07/09/2013 02413 Xray Knee 3 Views Completed 07/09/201347143 Inject/Drain Joint/Bursa Major W/O US Completed Encounters Type Date Location Provider Dx Diagnosis Office Visit 08/14/2018 [facility] Savi Billings MD E03.9 Hypothyroidism, 9:00a Medicine - unspecified [place] E66.8 Other obesity N18.3 Chronic kidney disease, stage 3 (moderate) R59.0 Localized enlarged lymph nodes R25.1 Tremor, unspecified I12.9 Hypertensive chronic kidney disease w stg 1-4/unsp chr kdny Office Visit 07/31/2018 9:00a [facility] Savi Billings, I10 Essential ( primary) Medicine - MD hypertension [place] E03.9 Hypothyroidism, unspecified E66.8 Other obesity N18.3 Chronic kidney disease, stage 3 (moderate) F33.40 Major depressive disorder, recurrent, in remission, unsp Z23 Encounter for immunization R59.0 Localized enlarged lymph nodes R25.1 Tremor, unspecified Office Visit 04/01/2018 2:15p [facility] [place] J31.0 Chronic C.M.A. AT [facility] Bravo rhinitis [place] H69.91 Unspecified Eustachian tube disorder, right ear Office Visit 02/02/2014 [facility] Jessica 715.96 Osteoarthrosis 8:15a [facility] Unspec Genlzd Or C.M.A. Localized Lower Leg Office Visit 07/28/2013 Orthopedic Ahmet Cornelius 716.96 Arthropathy Unspec 2:45p [facility] Lower Leg C.[facility]. Office Visit 07/09/2013 Orthopedic Ahmet Cornelius 716.96 Arthropathy Unspec 8:45a [facility] Lower Leg C.M.A. 715.96 Osteoarthrosis Unspec Genlzd Or Localized Lower Leg Plan of Treatment Future Appointment(s):12/27/2018 9:40 am - Savi Billings MD at [facility] Internal Medicine - Yapfqzbse70/11/2019 - Savi Billings MDI10 Essential (primary) hypertensionFollow up:Controlled Continue same medication F/U 3 fogyohW68.9 Hypothyroidism, unspecifiedFollow up:Will wait for the labwork to see if you need dosage qqxoadF36.8 Abnormal levels of other serum enzymesFollow up:Please get repeat alkaline phosphatase checked Your laborder is at the lab You can get a printed order today at checkout as wellM54.2 CervicalgiaNew Medication: Cyclobenzaprine HCL 10 mg - 1 by mouth at nightNew Therapy:Physical Therapy
== END 2018-09-28 12:50 | disposition home or self-care (01) ==
LOC: UCEAST 11:54
DX: S16.1XXA Strain of muscle, fascia and tendon at neck level, initial encounter (principal); X58.XXXA Exposure to other specified factors, initial encounter; Y92.9 Unspecified place or not applicable; Z88.1 Allergy status to other antibiotic agents; Z88.0 Allergy status to penicillin
CPT/HCPCS: 99212; G0463

== ENCOUNTER 2019-02-19 14:36 | Emergency (ER) | payer MEDICARE, OTHER ==
[2019-02-19 15:11] VITALS: BP 128/85
[2019-02-19] MEDS: Benzoin Compound STICK TOPICAL ONE (16:13)
[2019-02-19] MEDS: Tetan/Diph/Pertus SYR(Tdap)* 0.5 ML SYR(BOOSTRIX) use SYR IM ONE (16:22)
--- NOTE | 2019-02-19 16:29 | UC ---
Laceration HPI - HPI Summary HPI Summary: 68-year-old female presents with laceration to her left index finger. States she was using electric hedge trimmers, set the axel down on top of the hedge to pear picker some trimmings on the ground, and she accidentally cut the pad of her finger on the trimmers when she was standing back up. Bleeding controlled prior to arrival. Patient uncertain of tetanus status. - History Of Current Complaint Chief Complaint: UCLaceration Stated Complaint: HAND LACERATION Time Seen by Provider: 02/19/19 16:06 Hx Obtained From: Patient Pain Intensity: 9 - Allergies/Home Medications Allergies/Adverse Reactions: Allergies Allergy/AdvReac Type Severity Reaction Status Date / Time amoxicillin [From Augmentin] Allergy nvd Verified 09/28/18 12:08 clavulanic acid Allergy nvd Verified 09/28/18 12:08 [From Augmentin] PMH/Surg Hx/FS Hx/Imm Hx Endocrine History: Hypothyroidism Cardiovascular History: Hypertension Psychological History: Depression - Surgical History Surgical History: Yes Surgery Procedure, Year, and Place: tubal ligation, tonsilectomy - Family History Known Family History: Positive: Non-Contributory - Social History Occupation: Retired Lives: With Family Alcohol Use: Rare Alcohol Amount: socially Substance Use Type: None Smoking Status (MU): Never Smoked Tobacco - Immunization History Most Recent Tetanus Shot: unknown Review of Systems All Other Systems Reviewed And Are Negative: Yes Constitutional: Positive: Negative Skin: Positive: Other - See HPI Respiratory: Positive: Negative Cardiovascular: Positive: Negative Gastrointestinal: Positive: Negative Genitourinary: Positive: Negative Musculoskeletal: Positive: Negative Neurological: Positive: Negative Is Patient Immunocompromised?: No Physical Exam - Summary Physical Exam Summary: GENERAL APPEARANCE: Well developed, well nourished, alert and cooperative, and appears to be in no acute distress. CARDIAC: Normal S1 and S2. No S3, S4 or murmurs. Rhythm is regular. There is no peripheral edema, cyanosis or pallor. Extremities are warm and well perfused. Capillary refill is less than 2 seconds. Peripheral pulses intact. LUNGS: Clear to auscultation without rales, rhonchi, wheezing or diminished breath sounds. ABDOMEN: Positive bowel sounds. Soft, nondistended, nontender. No guarding or rebound. No masses or hepatosplenomegally. MUSKULOSKELETAL: ROM intact to all extremities. No joint erythema or tenderness. Normal muscular development. Normal gait. SKIN: Skin normal color, texture and turgor. C-shaped flap laceration to the pad of the left index finger. Bleeding controlled. Triage Information Reviewed: Yes Vital Signs: Initial Vital Signs Temp 99.2 F 02/19/19 15:08 Pulse 101 02/19/19 15:08 Resp 18 02/19/19 15:08 BP 128/85 02/19/19 15:08 Pulse Ox 95 02/19/19 15:08 Vital Signs Reviewed: Yes Laceration Repair - Laceration Repair 1 Procedure Summary: The wound was copiously irrigated with NS by the RN prior to wound closure. The wound margins were brought into good alignment and the flap was secured in place using 2 1/8 in Steri-Strips. The wound margins were then closed using a skin adhesive. Total length of laceration after repair was 1.5 cm. Estimated blood loss was minimal. A dressing was applied to the area. Anticipatory guidance, as well as standard post-procedure care was discussed with patient. Return precautions are given. The patient tolerated the procedure well without complications. Laceration Course/Dx - Course/Dx Course Of Treatment: 68-year-old female presents with laceration to her left index finger. States she was using electric hedge trimmers, set the axel down on top of the hedge to pear picker some trimmings on the ground, and she accidentally cut the pad of her finger on the trimmers when she was standing back up. Bleeding controlled prior to arrival. Patient uncertain of tetanus status. Afebrile. Vital signs stable. Patient had a C-shaped flap laceration to the pad of her left index finger with bleeding controlled and otherwise unremarkable exam. The wound was thoroughly irrigated by the RN prior to wound closure. The flap was secured using two 1/8 inch Steri-Strips and the wound margins closed with skin adhesive. A dressing was applied and the patient's tetanus is updated. I did discuss with the patient the possibility that the flap may be too superficial to revascularize the wound may ultimately end up by closing by secondary intention. Wound care, anticipatory guidance, and warning symptoms were reviewed with the patient. Verbalizes understanding and agrees with plan of care. - Differential Dx - Laceration/Wound Differental Diagnoses: Laceration - Diagnosis Provider Diagnosis: Laceration of left index finger Discharge - Sign-Out/Discharge Documenting (check all that apply): Patient Departure All imaging exams completed and their final reports reviewed: No Studies - Discharge Plan Condition: Stable Disposition: HOME Patient Education Materials: Laceration (ED), Skin Adhesive Care (ED), Steristrips (ED) Referrals: Savi Billings MD [Primary Care Provider] - Additional Instructions: Your laceration as repaired with a combination of skin adhesive and Steri- Strips. The adhesive will slowly wear off over the next several days. Keep the adhesive dry for the next 24 hours. After 24 hours you may shower and wash your hands as ususal. Do not apply any lotions aor ointments to the adhesive as this may dissolve the adhesive and cause the wound to reopen. The Steri-Strips will slowly peel up from the ends over the next few days. You may trim the ends as needed but do not pull off or you may reopen the wound. Keep the wound covered with a dressing. Change this at least once a day or anytime the dressing becomes wet or soiled. Take acetaminophen (Tylenol) or ibuprofen (Advil, Motrin) according to directions as needed for pain. Your tetanus was updated today. Be sure to contact your primary care provider so they can update their records. Watch for signs of infection including fever greater than 100.5 F, severe pain not managed with with pain medicine, redness that spreads, swelling of the finger, pus draining from the wound, or any worsening of symptoms. Seek immediate medical attention if any of these occur. - Billing Disposition and Condition Condition: STABLE Disposition: Home - Attestation Statements Provider Attestation: Pt not seen by me. I was available for consultation.
== END 2019-02-19 16:55 | disposition home or self-care (01) ==
LOC: UCEAST 14:36
DX: S61.211A Laceration without foreign body of left index finger without damage to nail, initial encounter (principal); W29.3XXA Contact with powered garden and outdoor hand tools and machinery, initial encounter; Y93.H2 Activity, gardening and landscaping; Y92.007 Garden or yard of unspecified non-institutional (private) residence as the place of occurrence of the external cause; I10 Essential (primary) hypertension; Z23 Encounter for immunization
CPT/HCPCS: 12001; 90715; 99211; G0463

== ENCOUNTER 2019-02-23 10:26 | Emergency (ER) | payer MEDICARE, OTHER ==
[2019-02-23 10:39] VITALS: BP 168/89
--- NOTE | 2019-02-23 12:04 | UC ---
Respiratory Complaint HPI - HPI Summary HPI Summary: Increased allergies for the past several weeks, with increase in cough and dry heaves over the past several days. Has been taking benadryl for relief of allergies. Has increased congestion, but no shorthess of breath. Recently diagnosed with sciatica and was given diclofenac 50mg bid earlier this week; no obvious gi upset and has put this on hold for the past several days. - History of Current Complaint Chief Complaint: UCRespiratory Stated Complaint: CONGESTION/FEVER Time Seen by Provider: 02/23/19 11:53 Hx Obtained From: Patient ?: No Onset/Duration: Gradual Onset, Lasting Days - 3 Timing: Constant Severity Initially: Mild Severity Currently: Moderate Pain Intensity: 8 Character: Cough: Productive, Sputum Description: - yellow Aggravating Factors: Exertion, Deep Breaths Alleviating Factors: OTC Meds Associated Signs And Symptoms: Positive: URI, Nasal Congestion, Hoarseness - Risk Factors Pulmonary Embolism Risk Factors: Negative Cardiac Risk Factors: Negative Pseudomonas Risk Factors: Negative Tuberculosis Risk Factors: Negative - Allergies/Home Medications Allergies/Adverse Reactions: Allergies Allergy/AdvReac Type Severity Reaction Status Date / Time amoxicillin [From Augmentin] Allergy nvd Verified 02/23/19 10:40 clavulanic acid Allergy nvd Verified 02/23/19 10:40 [From Augmentin] PMH/Surg Hx/FS Hx/Imm Hx Endocrine History: Hypothyroidism Cardiovascular History: Hypertension - Surgical History Surgical History: Yes Surgery Procedure, Year, and Place: tubal ligation, tonsilectomy - Family History Known Family History: Positive: Non-Contributory - Social History Occupation: Retired Lives: With Family Alcohol Use: Rare Alcohol Amount: socially Substance Use Type: None Smoking Status (MU): Former Smoker - Immunization History Most Recent Tetanus Shot: unknown Review of Systems All Other Systems Reviewed And Are Negative: Yes Constitutional: Positive: Fever, Fatigue ENT: Positive: Sore Throat, Sinus Congestion Respiratory: Positive: Cough Gastrointestinal: Positive: Nausea Genitourinary: Positive: Negative Motor: Positive: Negative Neurovascular: Positive: Negative Musculoskeletal: Positive: Negative Neurological: Positive: Negative Psychological: Positive: Negative Is Patient Immunocompromised?: No Physical Exam Triage Information Reviewed: Yes Appearance: No Pain Distress, Ill-Appearing Vital Signs: Initial Vital Signs Temp 100.8 F 02/23/19 10:37 Pulse 97 06/09/19 10:37 Resp 20 02/23/19 10:37 BP 168/89 02/23/19 10:37 Pulse Ox 98 02/23/19 10:37 Eyes: Positive: Conjunctiva Clear ENT: Positive: Pharyngeal erythema - ++ posterior drainage., TMs normal Neck: Positive: Supple, Tenderness @ - posterior cervical nodes, Enlarged Nodes @ - posterior cervical Respiratory: Positive: Lungs clear, Normal breath sounds Cardiovascular: Positive: RRR, No Murmur Musculoskeletal Exam: Normal Neurological Exam: Normal Psychological Exam: Normal Respiratory Course/Dx - Course Course Of Treatment: cephalexin for sinusitis, zofran, Hold benadryl, try non-sedating antihistamine. - Differential Dx/Diagnosis Differential Diagnosis/HQI/PQRI: Bronchitis, Laryngitis, Lower Resp Infection, Sinusitis Provider Diagnosis: Acute sinusitis Discharge - Sign-Out/Discharge Documenting (check all that apply): Patient Departure All imaging exams completed and their final reports reviewed: No Studies - Discharge Plan Condition: Stable Disposition: HOME Prescriptions: cephALEXin [Keflex] 500 mg PO TID #21 capsule Ondansetron ODT TAB* [Zofran 4 MG Odt TAB*] 4 mg PO Q6H PRN #10 tab.odt PRN Reason: Nausea Patient Education Materials: Sinusitis (ED) Referrals: Savi Billings MD [Primary Care Provider] - Additional Instructions: Begin cephalexin for treatment of sinusitis. continue holding diclofenac for treatment of sciatica until your nausea resolves. Use zofran as needed for treatment of nausea. You might try a different antihistamine for allergies. I suggest use of fexofenadine (generic Alicia) 180mg once daily OR cetirazine (Zyrtec) 10mg once daily as needed. Follow up if you have persistent fever or vomting. - Billing Disposition and Condition Condition: STABLE Disposition: Home
== END 2019-02-23 12:31 | disposition home or self-care (01) ==
LOC: UCEAST 10:26
DX: Z88.0 Allergy status to penicillin (principal); I10 Essential (primary) hypertension; Z87.891 Personal history of nicotine dependence
CPT/HCPCS: 99212; G0463